=== PATIENT | female | born 1955 | race Caucasian/White ===

== ENCOUNTER 2018-08-07 10:19 | Emergency (ER) | payer OTHER ==
[~2018-08-07] VITALS: Ht 162.6 cm; Wt 111.1 kg
[2018-08-07 10:26] VITALS: Ht 162.6 cm; Wt 111.1 kg
[2018-08-07 12:00] VITALS: BP 154/78
== END 2018-08-07 12:00 | disposition home or self-care (01) ==
LOC: ED 10:19
DX: M79.661 Pain in right lower leg (principal); J45.909 Unspecified asthma, uncomplicated; E11.9 Type 2 diabetes mellitus without complications; E78.00 Pure hypercholesterolemia, unspecified; Z86.73 Personal history of transient ischemic attack (TIA), and cerebral infarction without residual deficits; Z88.0 Allergy status to penicillin; Z88.1 Allergy status to other antibiotic agents; Z88.6 Allergy status to analgesic agent; Z98.890 Other specified postprocedural states